=== PATIENT | male | born 1975 | race Caucasian/White ===

== ENCOUNTER 2021-02-04 00:54 | Emergency (ER) | payer MEDICAID, OTHER ==
[~2021-02-04] VITALS: Ht 170.2 cm; Wt 103.9 kg
--- NOTE | 2021-02-04 01:00 | NUR ---
bibra [id number] from home c/o left ankle pain and deformity s/p falling off 4ft ladder. pt was assisted to bed 6 ER on nmonitor,
--- NOTE | 2021-02-04 01:15 | NUR ---
RAD AT BED SIDE
[2021-02-04] MEDS ORDERED: HYDROMORPHONE 1 MG/1 ML DISP.SYRIN ONE ×2 (01:18→02:25)
[2021-02-04] MEDS ORDERED: ETOMIDATE 2 MG/ML VIAL ONE (01:25)
[2021-02-04] MEDS ORDERED: HYDROMORPHONE 1 MG/1 ML DISP.SYRIN IV ONE ×2 (01:30→02:30)
--- NOTE | 2021-02-04 01:33 | NUR ---
ETOMIDATE 20MG IV WAS PUSHED PER DR'S ORDER. RT AND MD AT BED SIDE
--- NOTE | 2021-02-04 01:34 | NUR ---
CLOSE REFUCTION OF L ANKLE WAS DONE BY DR MATA AT THE BED SIDE
[2021-02-04] MEDS ORDERED: TRAM50TA2 PO (01:37)
--- NOTE | 2021-02-04 02:04 | NUR ---
PT IS AWAKE AND RESPONSIVE. BREATHING EVENLY. NO SOB. NAD. SATTING 94-95% ON R/A. REMAINED ON [employer]
--- NOTE | 2021-02-04 02:51 | NUR ---
EMT AT BED SIDE TO PROVIDE PT W/ CRUTCHES
--- NOTE | 2021-02-04 03:50 | NUR ---
PT is medically stable for D/C per md. crutches were provided w/ instructions and demonstrations. VSS. Patient discharged to home in stable condition. Rx and Written and verbal after care instructions given. Patient verbalizes understanding of instruction. pt was picked up by son
[2021-02-04 03:52] VITALS: BP 155/89
== END 2021-02-04 03:53 | disposition home or self-care (01) ==
LOC: ER 00:58
DX: S82.852A Displaced trimalleolar fracture of left lower leg, initial encounter for closed fracture (principal); I10 Essential (primary) hypertension; E11.9 Type 2 diabetes mellitus without complications; Z79.899 Other long term (current) drug therapy; W18.39XA Other fall on same level, initial encounter; Y93.89 Activity, other specified; Y92.89 Other specified places as the place of occurrence of the external cause; Y99.8 Other external cause status
CPT/HCPCS: 27818; 73600; 73610; 96374; 96376; 99152; 99285; J1170 ×2; J3490; G0500